=== PATIENT | male | born 1950 | race Two or more races ===

== ENCOUNTER 2023-01-07 16:08 | Inpatient (IN) | payer MEDICARE ==
[~2023-01-07] VITALS: Ht 167.6 cm; Wt 68.0 kg
[2023-01-07 17:12] LABS: BASOPHILS % (AUTO) 0.4 % (0.0-2.0); EOSINOPHILS % (AUTO) 0.4 % (0.0-6.0); HEMATOCRIT 38 % (39-51); HEMOGLOBIN 12.4 g/dL (13.5-17.5); LYMPHOCYTES # (AUTO) 0.8 K/uL (0.8-4.8); LYMPHOCYTES % (AUTO) 9.4 % (20.0-44.0); MEAN CORPUSCULAR HEMOGLOBIN 28 PG (26.0-33.0); MEAN CORPUSCULAR HGB CONC 33 g/dl (31.0-36.0); MEAN CORPUSCULAR VOLUME 86 fL (80-96); MONOCYTES # (AUTO) 0.6 K/uL (0.1-1.30); NEUTROPHILS # (AUTO) 7.2 K/uL (1.8-8.9); NEUTROPHILS % (AUTO) 82.8 % (43.0-81.0); PLATELET COUNT (AUTO) 174 K/uL (150-450); RED BLOOD CELL COUNT(AUTO) 4.43 MIL/uL (4.5-6.0); RED CELL DISTRIBUTION WIDTH 15.9 % (11.5-15.0); WHITE BLOOD COUNT (AUTO) 8.7 K/uL (4.3-11.0)
[2023-01-07 17:27] LABS: ALANINE AMINOTRANSFERASE 28 U/L (12-78); ALBUMIN 4.3 g/dL (3.4-5.0); ALKALINE PHOSPHATASE 72 U/L (46-116); ASPARTATE AMINOTRANSFERASE 24 U/L (15-37); BILIRUBIN,DIRECT 0.1 mg/dL (0.0-0.2); BILIRUBIN,TOTAL 0.2 mg/dL (0.2-1.0); CALCIUM, SERUM 9.9 mg/dL (8.5-10.1); CARBON DIOXIDE 26 mmol/L (21-32); CHLORIDE 96 mmol/L (98-107); CREATININE 1.3 mg/dL (0.6-1.3); GLUCOSE 283 mg/dL (74-106); POTASSIUM 4.8 mmol/L (3.5-5.1); SALICYLATE 3.6 mg/dL (2.8-20.0); SODIUM SERUM 134 mmol/L (136-145); TOTAL PROTEIN, SERUM 7.6 g/dL (6.4-8.2); UREA NITROGEN, BLOOD 16 mg/dL (7-18)
[2023-01-07 17:38] LABS: ACETAMINOPHEN <10 ug/ml (10-30); ALCOHOL, BLOOD < 3 mg/dL (0-10)
[2023-01-07 18:19] LABS: APPEARANCE,URINE CLEAR (CLEAR); BILIRUBIN,URINE NEGATIVE (NEGATIVE); BLOOD, URINE NEGATIVE Ery/uL (NEGATIVE); COLOR,URINE YELLOW (YELLOW); KETONES,URINE 1+ mg/dL (NEGATIVE); LEUKOCYTE ESTERASE ,URINE NEGATIVE (NEGATIVE); NITRITE, URINE NEGATIVE (NEGATIVE); PROTEIN,URINE NEGATIVE (NEGATIVE); UGLUCOSE 3+ mg/dL (NEGATIVE); UROBILINOGEN,URINE 0.2 EU/dL (0.2)
[2023-01-07 18:36] LABS: AMPHETAMINE, URINE NEGATIVE (NEGATIVE); BARBITURATE, URINE NEGATIVE (NEGATIVE); BENZODIAZEPINE, URINE NEGATIVE (NEGATIVE); CANNABINOID, URINE NEGATIVE (NEGATIVE); COCCAINE, URINE NEGATIVE (NEGATIVE); OPIATE, URINE NEGATIVE (NEGATIVE); PHENCYCLIDINE SCREEN,URINE NEGATIVE (NEGATIVE)
[2023-01-07 18:46] LABS: ADD URINE CULTURE NO; BACTERIA,URINE Rare /HPF (None Seen); RBC,URINE 0-2 /HPF (0-2); WBC,URINE 0-2 /HPF (0-3)
[2023-01-07 18:47] LABS: CALCIUM OXALATE CRYSTALS,UR Rare /HPF (None Seen); SQUAMOUS EPITHELIAL CELL,UR Rare /HPF (None Seen)
[2023-01-07] MEDS ORDERED: LIDOCAINE 1% INJ 50 ML MDV IJ ONE (18:48)
[2023-01-07] MEDS ORDERED: LIDOCAINE 2% JEL UROJET 10 ML MM ONE (19:10)
[2023-01-07] MEDS ORDERED: DEXTROSE 50%-WATER 50 ML DISP.SYRIN IV PRN (21:00)
[2023-01-07] MEDS ORDERED: LORAZEPAM 1 MG TABLET PO PRN (21:00)
[2023-01-07 22:35] VITALS: BP 117/56; TEMP 98.8; O2SAT 97
[2023-01-07] MEDS: BLOOD SUGAR DIAGNOSTIC 1 EACH STRIP IN SCH (22:37)
[2023-01-07] MEDS ORDERED: BLOOD SUGAR DIAGNOSTIC 1 EACH STRIP IN ONE (23:00)
[2023-01-07] MEDS ORDERED: MAGNESIUM HYDROXIDE 30 ML UDC PO PRN (23:00)
[2023-01-07] MEDS ORDERED: MAG HYDROX/AL HYDROX/SIMETH 30 ML UDC PO PRN (23:00)
[2023-01-07] MEDS: LORAZEPAM 0.5 MG TABLET PO PRN (23:15)
[2023-01-08] MEDS: INSULIN REGULAR, HUMAN 100 UNIT/ML 3 ML VIAL SQ PRN ×5 (00:04→21:59)
[2023-01-08 07:14] LABS: CREATININE 0.9 mg/dL (0.6-1.3)
[2023-01-08 07:22] LABS: CHOLESTEROL 112 mg/dL (<200); HDL CHOLESTEROL 33 mg/dL (40-60); LDL 59 mg/dL (0-99); TRIGLYCERIDES 131 mg/dL (30-150)
[2023-01-08 08:00] VITALS: BP 107/73; TEMP 98.6; O2SAT 97
[2023-01-08] MEDS: BLOOD SUGAR DIAGNOSTIC 1 EACH STRIP IN SCH ×4 (08:08→21:55)
[2023-01-08] MEDS ORDERED: ASCO-340 PO (09:09)
[2023-01-08] MEDS ORDERED: CARV3.122 PO (09:09)
[2023-01-08] MEDS ORDERED: LISI2.5T2 PO (09:09)
[2023-01-08] MEDS ORDERED: INSU100I30 SQ (09:09)
[2023-01-08] MEDS ORDERED: LIFI1DRO4 EACHEYE (09:09)
[2023-01-08] MEDS ORDERED: PANT40TA49 PO (09:09)
[2023-01-08] MEDS ORDERED: SEMA1PEN SQ (09:09)
[2023-01-08] MEDS ORDERED: ASPI-1169 PO (09:09)
[2023-01-08] MEDS ORDERED: PREG50CA PO (09:09)
[2023-01-08] MEDS ORDERED: DULO20CA19 PO (09:09)
[2023-01-08] MEDS ORDERED: METF-442 PO (09:09)
[2023-01-08] MEDS ORDERED: PENT400T17 PO (09:09)
[2023-01-08] MEDS ORDERED: DOCU250C14 PO (09:09)
[2023-01-08] MEDS ORDERED: ROSU5TAB PO (09:09)
[2023-01-08] MEDS ORDERED: HYDR-500 PO (09:09)
[2023-01-08] MEDS ORDERED: TAMS-12 PO (09:09)
[2023-01-08] MEDS ORDERED: LIDO30CR TP (09:09)
[2023-01-08] MEDS ORDERED: CHOL100043 PO (09:09)
[2023-01-08] MEDS ORDERED: TRAZ-257 PO (09:09)
[2023-01-08] MEDS ORDERED: ACET-2605 PO (09:09)
[2023-01-08] MEDS ORDERED: LEVO25TA2 PO (09:09)
[2023-01-08] MEDS: FLUOXETINE HCL 20 MG CAPSULE PO SCH (12:45)
[2023-01-08] MEDS ORDERED: DEXTROSE 50%-WATER 50 ML DISP.SYRIN IV PRN (14:00)
[2023-01-08 16:00] VITALS: BP 116/56; TEMP 97.7; O2SAT 96
[2023-01-08] MEDS: ASPIRIN 81 MG TAB.CHEW PO SCH (16:17)
[2023-01-08] MEDS: METFORMIN 500 MG TABLET PO SCH (16:17)
[2023-01-08] MEDS: DOCUSATE SODIUM 250 MG CAPSULE PO SCH (16:18)
[2023-01-08] MEDS: CARVEDILOL 3.125 MG TABLET PO SCH (16:18)
[2023-01-08] MEDS: ASCORBIC ACID 500 MG TABLET PO SCH (16:18)
[2023-01-08] MEDS: LEVOTHYROXINE SODIUM 25 MCG TABLET PO SCH (16:20)
[2023-01-08] MEDS: PENTOXIFYLLINE 400 MG TABLET.SA PO SCH (17:00)
[2023-01-08] MEDS ORDERED: LIDOCAINE/PRILOCAINE (5GM) 5 GM TUBE TP SCH (17:00)
[2023-01-08] MEDS: TRAZODONE 50 MG TABLET PO SCH (20:07)
[2023-01-08 20:24] VITALS: BP 123/91; TEMP 98.2; O2SAT 96
[2023-01-08] MEDS: ATORVASTATIN 10 MG TABLET PO SCH (21:46)
[2023-01-08] MEDS: TAMSULOSIN 0.4 MG CAP.SR.24H PO SCH (21:49)
[2023-01-09] MEDS: BLOOD SUGAR DIAGNOSTIC 1 EACH STRIP IN SCH ×4 (07:50→22:00)
[2023-01-09] MEDS: INSULIN REGULAR, HUMAN 100 UNIT/ML 3 ML VIAL SQ PRN ×4 (07:51→22:01)
[2023-01-09 08:00] VITALS: BP 141/66; TEMP 98.2; O2SAT 95
[2023-01-09] MEDS: ASPIRIN 81 MG TAB.CHEW PO SCH (08:30)
[2023-01-09] MEDS: DOCUSATE SODIUM 250 MG CAPSULE PO SCH ×2 (08:31→16:32)
[2023-01-09] MEDS: METFORMIN 500 MG TABLET PO SCH ×2 (08:31→16:32)
[2023-01-09] MEDS: ASCORBIC ACID 500 MG TABLET PO SCH ×2 (08:31→16:31)
[2023-01-09] MEDS: CHOLECALCIFEROL 1,000 UNIT TABLET (VIT D3) PO SCH (08:31)
[2023-01-09] MEDS: PANTOPRAZOLE 40 MG TABLET.DR PO SCH (08:31)
[2023-01-09] MEDS: CARVEDILOL 3.125 MG TABLET PO SCH ×2 (08:32→16:32)
[2023-01-09] MEDS: LEVOTHYROXINE SODIUM 25 MCG TABLET PO SCH (08:32)
[2023-01-09] MEDS: LISINOPRIL (10MG) 10 MG TABLET PO SCH (08:34)
[2023-01-09] MEDS: PENTOXIFYLLINE 400 MG TABLET.SA PO SCH ×3 (08:34→16:32)
[2023-01-09] MEDS: PREGABALIN 25 MG CAPSULE PO SCH (08:34)
[2023-01-09] MEDS: INSULIN GLARGINE, 100 UNIT/ML CARTRIDGE SQ SCH (08:39)
[2023-01-09] MEDS: FLUOXETINE HCL 20 MG CAPSULE PO SCH (13:44)
[2023-01-09 16:00] VITALS: BP 100/62; TEMP 98.4; O2SAT 97
[2023-01-09 20:00] VITALS: BP 110/69; TEMP 98.2; O2SAT 98
[2023-01-09] MEDS: ACETAMINOPHEN 325 MG TABLET PO PRN (20:21)
[2023-01-09] MEDS: TAMSULOSIN 0.4 MG CAP.SR.24H PO SCH (21:59)
[2023-01-09] MEDS: TRAZODONE 50 MG TABLET PO SCH (21:59)
[2023-01-09] MEDS: ATORVASTATIN 10 MG TABLET PO SCH (21:59)
[2023-01-09] MEDS: LORAZEPAM 0.5 MG TABLET PO PRN (23:09)
[2023-01-10] MEDS: BLOOD SUGAR DIAGNOSTIC 1 EACH STRIP IN SCH ×4 (07:55→21:56)
[2023-01-10] MEDS: LEVOTHYROXINE SODIUM 25 MCG TABLET PO SCH (07:55)
[2023-01-10 08:00] VITALS: BP 100/68; TEMP 97.8; O2SAT 97
[2023-01-10] MEDS: ASPIRIN 81 MG TAB.CHEW PO SCH (08:36)
[2023-01-10] MEDS: CHOLECALCIFEROL 1,000 UNIT TABLET (VIT D3) PO SCH (08:36)
[2023-01-10] MEDS: DOCUSATE SODIUM 250 MG CAPSULE PO SCH ×2 (08:36→16:22)
[2023-01-10] MEDS: METFORMIN 500 MG TABLET PO SCH ×2 (08:36→16:22)
[2023-01-10] MEDS: PENTOXIFYLLINE 400 MG TABLET.SA PO SCH ×3 (08:36→16:22)
[2023-01-10] MEDS: LISINOPRIL (10MG) 10 MG TABLET PO SCH (08:37)
[2023-01-10] MEDS: PREGABALIN 25 MG CAPSULE PO SCH (08:37)
[2023-01-10] MEDS: PANTOPRAZOLE 40 MG TABLET.DR PO SCH (08:37)
[2023-01-10] MEDS: ASCORBIC ACID 500 MG TABLET PO SCH ×2 (08:37→16:22)
[2023-01-10] MEDS: CARVEDILOL 3.125 MG TABLET PO SCH ×2 (08:38→16:23)
[2023-01-10] MEDS: NICOTINE PATCH (14MG) 14 MG PATCH.TD24 TD SCH (08:41)
[2023-01-10] MEDS: INSULIN GLARGINE, 100 UNIT/ML CARTRIDGE SQ SCH (08:43)
[2023-01-10] MEDS: INSULIN REGULAR, HUMAN 100 UNIT/ML 3 ML VIAL SQ PRN ×4 (08:45→22:00)
[2023-01-10] MEDS: FLUOXETINE HCL 20 MG CAPSULE PO SCH (12:10)
[2023-01-10 16:00] VITALS: BP 107/64; TEMP 98.1; O2SAT 98
[2023-01-10 20:00] VITALS: BP 129/66; TEMP 98.1; O2SAT 98
[2023-01-10] MEDS: ATORVASTATIN 10 MG TABLET PO SCH (21:54)
[2023-01-10] MEDS: TAMSULOSIN 0.4 MG CAP.SR.24H PO SCH (21:55)
[2023-01-10] MEDS: TRAZODONE 50 MG TABLET PO SCH (21:56)
[2023-01-10] MEDS ORDERED: OLANZAPINE 2.5 MG TABLET PO SCH (22:00)
[2023-01-10] MEDS: TEMAZEPAM 7.5 MG CAPSULE PO PRN (23:13)
[2023-01-11] MEDS: LORAZEPAM 0.5 MG TABLET PO PRN ×2 (00:31→22:27)
[2023-01-11 08:00] VITALS: BP 110/64; TEMP 97.6; O2SAT 100
[2023-01-11] MEDS: LEVOTHYROXINE SODIUM 25 MCG TABLET PO SCH (08:46)
[2023-01-11] MEDS: ASCORBIC ACID 500 MG TABLET PO SCH ×2 (08:46→16:26)
[2023-01-11] MEDS: METFORMIN 500 MG TABLET PO SCH ×2 (08:46→16:26)
[2023-01-11] MEDS: CHOLECALCIFEROL 1,000 UNIT TABLET (VIT D3) PO SCH (08:46)
[2023-01-11] MEDS: PANTOPRAZOLE 40 MG TABLET.DR PO SCH (08:46)
[2023-01-11] MEDS: NICOTINE PATCH (14MG) 14 MG PATCH.TD24 TD SCH (08:46)
[2023-01-11] MEDS: DOCUSATE SODIUM 250 MG CAPSULE PO SCH ×2 (08:46→16:26)
[2023-01-11] MEDS: BLOOD SUGAR DIAGNOSTIC 1 EACH STRIP IN SCH ×4 (08:46→21:25)
[2023-01-11] MEDS: PENTOXIFYLLINE 400 MG TABLET.SA PO SCH ×3 (08:46→16:26)
[2023-01-11] MEDS: ASPIRIN 81 MG TAB.CHEW PO SCH (08:47)
[2023-01-11] MEDS: PREGABALIN 25 MG CAPSULE PO SCH (08:47)
[2023-01-11] MEDS: INSULIN GLARGINE, 100 UNIT/ML CARTRIDGE SQ SCH (08:48)
[2023-01-11] MEDS: CARVEDILOL 3.125 MG TABLET PO SCH ×2 (08:50→16:26)
[2023-01-11] MEDS: LISINOPRIL (10MG) 10 MG TABLET PO SCH (08:50)
[2023-01-11] MEDS: INSULIN REGULAR, HUMAN 100 UNIT/ML 3 ML VIAL SQ PRN ×4 (08:50→21:25)
[2023-01-11] MEDS: CADEXOMER IODINE 40 GM TUBE TP SCH (14:52)
[2023-01-11 16:00] VITALS: BP 160/68; TEMP 98; O2SAT 98
[2023-01-11 20:00] VITALS: BP 119/59; TEMP 98; O2SAT 99
[2023-01-11] MEDS: TRAZODONE 50 MG TABLET PO SCH (21:12)
[2023-01-11] MEDS: ATORVASTATIN 10 MG TABLET PO SCH (21:13)
[2023-01-11] MEDS: OLANZAPINE 2.5 MG TABLET PO SCH (21:13)
[2023-01-11] MEDS: TAMSULOSIN 0.4 MG CAP.SR.24H PO SCH (21:13)
[2023-01-11] MEDS: TEMAZEPAM 7.5 MG CAPSULE PO PRN (23:37)
[2023-01-12 08:00] VITALS: BP 116/67; TEMP 97.6; O2SAT 98
[2023-01-12] MEDS: BLOOD SUGAR DIAGNOSTIC 1 EACH STRIP IN SCH ×4 (08:30→22:31)
[2023-01-12] MEDS: DOCUSATE SODIUM 250 MG CAPSULE PO SCH ×2 (08:30→16:36)
[2023-01-12] MEDS: PANTOPRAZOLE 40 MG TABLET.DR PO SCH (08:30)
[2023-01-12] MEDS: METFORMIN 500 MG TABLET PO SCH ×2 (08:30→16:36)
[2023-01-12] MEDS: PENTOXIFYLLINE 400 MG TABLET.SA PO SCH ×3 (08:30→16:36)
[2023-01-12] MEDS: ASCORBIC ACID 500 MG TABLET PO SCH ×2 (08:30→16:36)
[2023-01-12] MEDS: ASPIRIN 81 MG TAB.CHEW PO SCH (08:30)
[2023-01-12] MEDS: PREGABALIN 25 MG CAPSULE PO SCH (08:30)
[2023-01-12] MEDS: LEVOTHYROXINE SODIUM 25 MCG TABLET PO SCH (08:30)
[2023-01-12] MEDS: NICOTINE PATCH (14MG) 14 MG PATCH.TD24 TD SCH (08:30)
[2023-01-12] MEDS: CHOLECALCIFEROL 1,000 UNIT TABLET (VIT D3) PO SCH (08:30)
[2023-01-12] MEDS: CARVEDILOL 3.125 MG TABLET PO SCH ×2 (08:33→16:37)
[2023-01-12] MEDS: LISINOPRIL (10MG) 10 MG TABLET PO SCH (08:34)
[2023-01-12] MEDS: INSULIN REGULAR, HUMAN 100 UNIT/ML 3 ML VIAL SQ PRN ×4 (08:37→22:33)
[2023-01-12] MEDS: INSULIN GLARGINE, 100 UNIT/ML CARTRIDGE SQ SCH (08:38)
[2023-01-12] MEDS: CADEXOMER IODINE 40 GM TUBE TP SCH (08:41)
[2023-01-12 16:10] VITALS: BP 100/55; TEMP 98.1; O2SAT 98
[2023-01-12 20:47] VITALS: BP 95/61; TEMP 97.9; O2SAT 98
[2023-01-12] MEDS: ATORVASTATIN 10 MG TABLET PO SCH (21:23)
[2023-01-12] MEDS: TRAZODONE 50 MG TABLET PO SCH (21:24)
[2023-01-12] MEDS: TAMSULOSIN 0.4 MG CAP.SR.24H PO SCH (21:25)
[2023-01-12] MEDS: OLANZAPINE 2.5 MG TABLET PO SCH (21:25)
[2023-01-12] MEDS: TEMAZEPAM 7.5 MG CAPSULE PO PRN (22:42)
[2023-01-13] MEDS: LEVOTHYROXINE SODIUM 25 MCG TABLET PO SCH (07:30)
[2023-01-13] MEDS: BLOOD SUGAR DIAGNOSTIC 1 EACH STRIP IN SCH ×4 (07:49→21:52)
[2023-01-13 08:00] VITALS: BP 102/54; TEMP 98.7; O2SAT 96
[2023-01-13] MEDS: LIDOCAINE 5% OINT 35.44 GM TUBE TP SCH (09:00)
[2023-01-13] MEDS: CADEXOMER IODINE 40 GM TUBE TP SCH (09:00)
[2023-01-13] MEDS: METFORMIN 500 MG TABLET PO SCH (10:46)
[2023-01-13] MEDS: DOCUSATE SODIUM 250 MG CAPSULE PO SCH ×2 (10:46→18:16)
[2023-01-13] MEDS: LISINOPRIL (10MG) 10 MG TABLET PO SCH (10:46)
[2023-01-13] MEDS: PREGABALIN 25 MG CAPSULE PO SCH (10:46)
[2023-01-13] MEDS: PANTOPRAZOLE 40 MG TABLET.DR PO SCH (10:46)
[2023-01-13] MEDS: CARVEDILOL 3.125 MG TABLET PO SCH ×2 (10:47→18:16)
[2023-01-13] MEDS: PENTOXIFYLLINE 400 MG TABLET.SA PO SCH ×3 (10:47→18:15)
[2023-01-13] MEDS: CHOLECALCIFEROL 1,000 UNIT TABLET (VIT D3) PO SCH (10:47)
[2023-01-13] MEDS: NICOTINE PATCH (14MG) 14 MG PATCH.TD24 TD SCH (10:47)
[2023-01-13] MEDS: ASPIRIN 81 MG TAB.CHEW PO SCH (10:48)
[2023-01-13] MEDS: ASCORBIC ACID 500 MG TABLET PO SCH ×2 (10:48→18:16)
[2023-01-13] MEDS: INSULIN GLARGINE, 100 UNIT/ML CARTRIDGE SQ SCH (11:07)
[2023-01-13] MEDS: INSULIN REGULAR, HUMAN 100 UNIT/ML 3 ML VIAL SQ PRN ×2 (12:36→22:00)
[2023-01-13] MEDS ORDERED: IOHEXOL-300 100 ML VIAL IV ONE (14:43)
[2023-01-13 16:00] VITALS: BP 103/52; TEMP 98.7; O2SAT 100
[2023-01-13 20:15] VITALS: BP 93/44; TEMP 98.2; O2SAT 98
[2023-01-13] MEDS: TAMSULOSIN 0.4 MG CAP.SR.24H PO SCH (21:51)
[2023-01-13] MEDS: OLANZAPINE 2.5 MG TABLET PO SCH (21:52)
[2023-01-13] MEDS: TRAZODONE 50 MG TABLET PO SCH (21:52)
[2023-01-13] MEDS: ATORVASTATIN 10 MG TABLET PO SCH (21:52)
[2023-01-13] MEDS: TEMAZEPAM 7.5 MG CAPSULE PO PRN (21:53)
[2023-01-14] MEDS: LORAZEPAM 0.5 MG TABLET PO PRN ×2 (00:23→21:14)
[2023-01-14 08:00] VITALS: BP 146/75; TEMP 97.8; O2SAT 96
[2023-01-14] MEDS: BLOOD SUGAR DIAGNOSTIC 1 EACH STRIP IN SCH ×4 (08:16→21:20)
[2023-01-14] MEDS: PENTOXIFYLLINE 400 MG TABLET.SA PO SCH ×3 (09:35→16:51)
[2023-01-14] MEDS: CHOLECALCIFEROL 1,000 UNIT TABLET (VIT D3) PO SCH (09:35)
[2023-01-14] MEDS: LEVOTHYROXINE SODIUM 25 MCG TABLET PO SCH (09:35)
[2023-01-14] MEDS: PREGABALIN 25 MG CAPSULE PO SCH (09:35)
[2023-01-14] MEDS: ASCORBIC ACID 500 MG TABLET PO SCH ×2 (09:36→16:51)
[2023-01-14] MEDS: ASPIRIN 81 MG TAB.CHEW PO SCH (09:36)
[2023-01-14] MEDS: PANTOPRAZOLE 40 MG TABLET.DR PO SCH (09:36)
[2023-01-14] MEDS: DOCUSATE SODIUM 250 MG CAPSULE PO SCH ×2 (09:36→16:51)
[2023-01-14] MEDS: CARVEDILOL 3.125 MG TABLET PO SCH ×2 (09:37→16:52)
[2023-01-14] MEDS: LISINOPRIL (10MG) 10 MG TABLET PO SCH (09:38)
[2023-01-14] MEDS: CADEXOMER IODINE 40 GM TUBE TP SCH (09:54)
[2023-01-14] MEDS: LIDOCAINE 5% OINT 35.44 GM TUBE TP SCH (09:55)
[2023-01-14] MEDS: INSULIN GLARGINE, 100 UNIT/ML CARTRIDGE SQ SCH (09:56)
[2023-01-14] MEDS: NICOTINE PATCH (14MG) 14 MG PATCH.TD24 TD SCH (10:00)
[2023-01-14] MEDS: DOXYCYCLINE HYCLATE (100 MG) 100 MG TABLET PO SCH ×2 (12:21→20:59)
[2023-01-14] MEDS: INSULIN REGULAR, HUMAN 100 UNIT/ML 3 ML VIAL SQ PRN ×3 (12:36→21:46)
[2023-01-14 16:00] VITALS: BP 114/59; TEMP 97.8; O2SAT 100
[2023-01-14 20:28] VITALS: BP 104/50; TEMP 98.6; O2SAT 98
[2023-01-14] MEDS: TRAZODONE 50 MG TABLET PO SCH (21:00)
[2023-01-14] MEDS: OLANZAPINE 2.5 MG TABLET PO SCH (21:00)
[2023-01-14] MEDS: TAMSULOSIN 0.4 MG CAP.SR.24H PO SCH (21:00)
[2023-01-14] MEDS: TEMAZEPAM 7.5 MG CAPSULE PO PRN (21:28)
[2023-01-14] MEDS: ATORVASTATIN 10 MG TABLET PO SCH (22:07)
[2023-01-15 08:00] VITALS: BP 110/59; TEMP 98.7; O2SAT 100
[2023-01-15] MEDS: BLOOD SUGAR DIAGNOSTIC 1 EACH STRIP IN SCH ×4 (08:32→21:25)
[2023-01-15] MEDS: INSULIN GLARGINE, 100 UNIT/ML CARTRIDGE SQ SCH (08:42)
[2023-01-15] MEDS: INSULIN REGULAR, HUMAN 100 UNIT/ML 3 ML VIAL SQ PRN ×4 (08:43→21:25)
[2023-01-15] MEDS: PENTOXIFYLLINE 400 MG TABLET.SA PO SCH ×3 (09:00→17:41)
[2023-01-15] MEDS: ASPIRIN 81 MG TAB.CHEW PO SCH (09:02)
[2023-01-15] MEDS: DOXYCYCLINE HYCLATE (100 MG) 100 MG TABLET PO SCH ×2 (09:02→21:53)
[2023-01-15] MEDS: NICOTINE PATCH (14MG) 14 MG PATCH.TD24 TD SCH (09:02)
[2023-01-15] MEDS: LISINOPRIL (10MG) 10 MG TABLET PO SCH (09:03)
[2023-01-15] MEDS: PREGABALIN 25 MG CAPSULE PO SCH (09:04)
[2023-01-15] MEDS: LEVOTHYROXINE SODIUM 25 MCG TABLET PO SCH (09:04)
[2023-01-15] MEDS: PANTOPRAZOLE 40 MG TABLET.DR PO SCH (09:04)
[2023-01-15] MEDS: ASCORBIC ACID 500 MG TABLET PO SCH ×2 (09:04→17:42)
[2023-01-15] MEDS: DOCUSATE SODIUM 250 MG CAPSULE PO SCH ×2 (09:04→17:40)
[2023-01-15] MEDS: CHOLECALCIFEROL 1,000 UNIT TABLET (VIT D3) PO SCH (09:04)
[2023-01-15] MEDS: CARVEDILOL 3.125 MG TABLET PO SCH ×2 (09:05→17:42)
[2023-01-15] MEDS: LIDOCAINE 5% OINT 35.44 GM TUBE TP SCH (09:22)
[2023-01-15] MEDS: CADEXOMER IODINE 40 GM TUBE TP SCH (09:22)
[2023-01-15] MEDS ORDERED: INSULIN REGULAR, HUMAN 100 UNIT/ML 3 ML VIAL SQ ONE (13:00)
[2023-01-15 16:00] VITALS: BP 121/53; TEMP 98.6; O2SAT 99
[2023-01-15] MEDS: OLANZAPINE 2.5 MG TABLET PO SCH ×2 (17:41→21:55)
[2023-01-15] MEDS: ACETAMINOPHEN 325 MG TABLET PO PRN (20:19)
[2023-01-15] MEDS: TRAZODONE 50 MG TABLET PO SCH (21:53)
[2023-01-15] MEDS: ATORVASTATIN 10 MG TABLET PO SCH (21:54)
[2023-01-15] MEDS: TEMAZEPAM 7.5 MG CAPSULE PO PRN (22:10)
[2023-01-15] MEDS: TAMSULOSIN 0.4 MG CAP.SR.24H PO SCH (22:44)
[2023-01-16 08:00] VITALS: BP 107/60; TEMP 98; O2SAT 96
[2023-01-16] MEDS: BLOOD SUGAR DIAGNOSTIC 1 EACH STRIP IN SCH ×4 (08:08→22:00)
[2023-01-16] MEDS: INSULIN REGULAR, HUMAN 100 UNIT/ML 3 ML VIAL SQ PRN ×3 (08:10→16:47)
[2023-01-16] MEDS: LEVOTHYROXINE SODIUM 25 MCG TABLET PO SCH (08:11)
[2023-01-16] MEDS: LISINOPRIL (10MG) 10 MG TABLET PO SCH (09:00)
[2023-01-16] MEDS: LIDOCAINE 5% OINT 35.44 GM TUBE TP SCH (09:00)
[2023-01-16] MEDS: CARVEDILOL 3.125 MG TABLET PO SCH ×2 (09:00→16:36)
[2023-01-16] MEDS: CADEXOMER IODINE 40 GM TUBE TP SCH (10:18)
[2023-01-16] MEDS: NICOTINE PATCH (14MG) 14 MG PATCH.TD24 TD SCH (10:18)
[2023-01-16] MEDS: DOXYCYCLINE HYCLATE (100 MG) 100 MG TABLET PO SCH ×2 (10:19→21:36)
[2023-01-16] MEDS: CHOLECALCIFEROL 1,000 UNIT TABLET (VIT D3) PO SCH (10:20)
[2023-01-16] MEDS: METFORMIN 500 MG TABLET PO SCH ×2 (10:20→16:36)
[2023-01-16] MEDS: OLANZAPINE 2.5 MG TABLET PO SCH ×3 (10:20→22:34)
[2023-01-16] MEDS: PANTOPRAZOLE 40 MG TABLET.DR PO SCH (10:21)
[2023-01-16] MEDS: PREGABALIN 25 MG CAPSULE PO SCH (10:21)
[2023-01-16] MEDS: PENTOXIFYLLINE 400 MG TABLET.SA PO SCH ×3 (10:21→16:36)
[2023-01-16] MEDS: ASPIRIN 81 MG TAB.CHEW PO SCH (10:21)
[2023-01-16] MEDS: DOCUSATE SODIUM 250 MG CAPSULE PO SCH ×2 (10:21→16:35)
[2023-01-16] MEDS: ASCORBIC ACID 500 MG TABLET PO SCH ×2 (10:21→16:36)
[2023-01-16] MEDS: INSULIN GLARGINE, 100 UNIT/ML CARTRIDGE SQ SCH (10:23)
[2023-01-16 16:00] VITALS: BP 120/58; TEMP 98; O2SAT 100
[2023-01-16] MEDS: TRAZODONE 50 MG TABLET PO SCH (21:36)
[2023-01-16] MEDS: ATORVASTATIN 10 MG TABLET PO SCH (22:33)
[2023-01-16] MEDS: TAMSULOSIN 0.4 MG CAP.SR.24H PO SCH (22:33)
[2023-01-17] MEDS: BLOOD SUGAR DIAGNOSTIC 1 EACH STRIP IN SCH ×4 (07:30→21:30)
[2023-01-17 08:00] VITALS: BP 119/79; TEMP 97.8; O2SAT 100
[2023-01-17] MEDS: PANTOPRAZOLE 40 MG TABLET.DR PO SCH (08:44)
[2023-01-17] MEDS: ASCORBIC ACID 500 MG TABLET PO SCH ×2 (08:44→16:48)
[2023-01-17] MEDS: OLANZAPINE 2.5 MG TABLET PO SCH ×3 (08:44→21:29)
[2023-01-17] MEDS: PREGABALIN 25 MG CAPSULE PO SCH (08:44)
[2023-01-17] MEDS: METFORMIN 500 MG TABLET PO SCH ×2 (08:44→16:47)
[2023-01-17] MEDS: LEVOTHYROXINE SODIUM 25 MCG TABLET PO SCH (08:45)
[2023-01-17] MEDS: ASPIRIN 81 MG TAB.CHEW PO SCH (08:45)
[2023-01-17] MEDS: DOXYCYCLINE HYCLATE (100 MG) 100 MG TABLET PO SCH ×2 (08:45→21:29)
[2023-01-17] MEDS: PENTOXIFYLLINE 400 MG TABLET.SA PO SCH ×3 (08:45→16:48)
[2023-01-17] MEDS: CARVEDILOL 3.125 MG TABLET PO SCH ×2 (08:46→16:46)
[2023-01-17] MEDS: LISINOPRIL (10MG) 10 MG TABLET PO SCH (08:46)
[2023-01-17] MEDS: CHOLECALCIFEROL 1,000 UNIT TABLET (VIT D3) PO SCH (08:47)
[2023-01-17] MEDS: NICOTINE PATCH (14MG) 14 MG PATCH.TD24 TD SCH (08:49)
[2023-01-17] MEDS: INSULIN GLARGINE, 100 UNIT/ML CARTRIDGE SQ SCH (09:13)
[2023-01-17] MEDS: INSULIN REGULAR, HUMAN 100 UNIT/ML 3 ML VIAL SQ PRN ×4 (09:15→21:34)
[2023-01-17] MEDS: DOCUSATE SODIUM 250 MG CAPSULE PO SCH ×2 (12:23→16:46)
[2023-01-17] MEDS: CADEXOMER IODINE 40 GM TUBE TP SCH (12:43)
[2023-01-17] MEDS: LIDOCAINE 5% OINT 35.44 GM TUBE TP SCH (12:49)
[2023-01-17 16:00] VITALS: BP 133/64; TEMP 97.9; O2SAT 97
[2023-01-17 20:40] VITALS: BP 106/58; TEMP 97.9; O2SAT 96
[2023-01-17] MEDS: TRAZODONE 50 MG TABLET PO SCH (21:28)
[2023-01-17] MEDS: ATORVASTATIN 10 MG TABLET PO SCH (21:29)
[2023-01-17] MEDS: TAMSULOSIN 0.4 MG CAP.SR.24H PO SCH (21:30)
[2023-01-18 08:00] VITALS: BP 135/60; TEMP 97.9; O2SAT 98
[2023-01-18] MEDS: PREGABALIN 25 MG CAPSULE PO SCH (08:18)
[2023-01-18] MEDS: NICOTINE PATCH (14MG) 14 MG PATCH.TD24 TD SCH (08:18)
[2023-01-18] MEDS: PANTOPRAZOLE 40 MG TABLET.DR PO SCH (08:18)
[2023-01-18] MEDS: DOXYCYCLINE HYCLATE (100 MG) 100 MG TABLET PO SCH ×2 (08:18→21:50)
[2023-01-18] MEDS: OLANZAPINE 2.5 MG TABLET PO SCH ×3 (08:18→22:14)
[2023-01-18] MEDS: CHOLECALCIFEROL 1,000 UNIT TABLET (VIT D3) PO SCH (08:18)
[2023-01-18] MEDS: LEVOTHYROXINE SODIUM 25 MCG TABLET PO SCH (08:18)
[2023-01-18] MEDS: ASPIRIN 81 MG TAB.CHEW PO SCH (08:18)
[2023-01-18] MEDS: ASCORBIC ACID 500 MG TABLET PO SCH ×2 (08:18→16:31)
[2023-01-18] MEDS: PENTOXIFYLLINE 400 MG TABLET.SA PO SCH ×3 (08:18→16:32)
[2023-01-18] MEDS: METFORMIN 500 MG TABLET PO SCH ×2 (08:18→16:32)
[2023-01-18] MEDS: DOCUSATE SODIUM 250 MG CAPSULE PO SCH ×2 (08:18→16:31)
[2023-01-18] MEDS: BLOOD SUGAR DIAGNOSTIC 1 EACH STRIP IN SCH ×4 (08:19→22:26)
[2023-01-18] MEDS: CARVEDILOL 3.125 MG TABLET PO SCH ×2 (08:19→16:32)
[2023-01-18] MEDS: LISINOPRIL (10MG) 10 MG TABLET PO SCH (08:19)
[2023-01-18] MEDS: INSULIN GLARGINE, 100 UNIT/ML CARTRIDGE SQ SCH (08:21)
[2023-01-18] MEDS: LIDOCAINE 5% OINT 35.44 GM TUBE TP SCH (09:21)
[2023-01-18] MEDS: CADEXOMER IODINE 40 GM TUBE TP SCH (09:21)
[2023-01-18] MEDS: INSULIN REGULAR, HUMAN 100 UNIT/ML 3 ML VIAL SQ PRN ×3 (12:28→22:27)
[2023-01-18 16:00] VITALS: BP 110/56; TEMP 98.9; O2SAT 100
[2023-01-18 20:20] VITALS: BP 97/51; TEMP 98.9; O2SAT 99
[2023-01-18] MEDS: TRAZODONE 50 MG TABLET PO SCH (21:50)
[2023-01-18] MEDS: ATORVASTATIN 10 MG TABLET PO SCH (22:14)
[2023-01-18] MEDS: TAMSULOSIN 0.4 MG CAP.SR.24H PO SCH (22:14)
[2023-01-19] MEDS: TEMAZEPAM 7.5 MG CAPSULE PO PRN ×2 (03:03→21:35)
[2023-01-19 08:00] VITALS: BP 100/59; TEMP 97.8; O2SAT 99
[2023-01-19] MEDS: BLOOD SUGAR DIAGNOSTIC 1 EACH STRIP IN SCH ×4 (08:02→21:39)
[2023-01-19] MEDS: ASPIRIN 81 MG TAB.CHEW PO SCH (08:03)
[2023-01-19] MEDS: DOXYCYCLINE HYCLATE (100 MG) 100 MG TABLET PO SCH ×2 (08:03→20:41)
[2023-01-19] MEDS: LISINOPRIL (10MG) 10 MG TABLET PO SCH (08:04)
[2023-01-19] MEDS: METFORMIN 500 MG TABLET PO SCH ×2 (08:04→16:53)
[2023-01-19] MEDS: OLANZAPINE 2.5 MG TABLET PO SCH ×3 (08:04→21:14)
[2023-01-19] MEDS: CHOLECALCIFEROL 1,000 UNIT TABLET (VIT D3) PO SCH (08:05)
[2023-01-19] MEDS: NICOTINE PATCH (14MG) 14 MG PATCH.TD24 TD SCH (08:05)
[2023-01-19] MEDS: PENTOXIFYLLINE 400 MG TABLET.SA PO SCH ×3 (08:05→16:53)
[2023-01-19] MEDS: CARVEDILOL 3.125 MG TABLET PO SCH ×2 (08:05→16:53)
[2023-01-19] MEDS: PANTOPRAZOLE 40 MG TABLET.DR PO SCH (08:06)
[2023-01-19] MEDS: ASCORBIC ACID 500 MG TABLET PO SCH ×2 (08:06→16:53)
[2023-01-19] MEDS: PREGABALIN 25 MG CAPSULE PO SCH (08:06)
[2023-01-19] MEDS: DOCUSATE SODIUM 250 MG CAPSULE PO SCH ×2 (08:06→16:53)
[2023-01-19] MEDS: LEVOTHYROXINE SODIUM 25 MCG TABLET PO SCH (08:06)
[2023-01-19] MEDS: INSULIN REGULAR, HUMAN 100 UNIT/ML 3 ML VIAL SQ PRN ×4 (08:43→21:34)
[2023-01-19] MEDS: INSULIN GLARGINE, 100 UNIT/ML CARTRIDGE SQ SCH (08:45)
[2023-01-19] MEDS: CADEXOMER IODINE 40 GM TUBE TP SCH (08:45)
[2023-01-19] MEDS: LIDOCAINE 5% OINT 35.44 GM TUBE TP SCH (08:47)
[2023-01-19 16:00] VITALS: BP 103/59; TEMP 97.7; O2SAT 99
[2023-01-19 20:38] VITALS: BP 117/59; TEMP 98.2; O2SAT 98
[2023-01-19] MEDS: TRAZODONE 50 MG TABLET PO SCH (20:41)
[2023-01-19] MEDS: ATORVASTATIN 10 MG TABLET PO SCH (21:14)
[2023-01-19] MEDS: TAMSULOSIN 0.4 MG CAP.SR.24H PO SCH (21:14)
[2023-01-19] MEDS: LORAZEPAM 0.5 MG TABLET PO PRN (21:38)
[2023-01-20 08:00] VITALS: BP 138/67; TEMP 97.9; O2SAT 96
[2023-01-20] MEDS: BLOOD SUGAR DIAGNOSTIC 1 EACH STRIP IN SCH ×2 (08:20→12:26)
[2023-01-20] MEDS: LEVOTHYROXINE SODIUM 25 MCG TABLET PO SCH (08:21)
[2023-01-20] MEDS: ASCORBIC ACID 500 MG TABLET PO SCH (08:48)
[2023-01-20] MEDS: DOXYCYCLINE HYCLATE (100 MG) 100 MG TABLET PO SCH (08:48)
[2023-01-20] MEDS: CHOLECALCIFEROL 1,000 UNIT TABLET (VIT D3) PO SCH (08:48)
[2023-01-20] MEDS: PANTOPRAZOLE 40 MG TABLET.DR PO SCH (08:48)
[2023-01-20] MEDS: ASPIRIN 81 MG TAB.CHEW PO SCH (08:48)
[2023-01-20] MEDS: PREGABALIN 25 MG CAPSULE PO SCH (08:48)
[2023-01-20] MEDS: CARVEDILOL 3.125 MG TABLET PO SCH (08:49)
[2023-01-20] MEDS: METFORMIN 500 MG TABLET PO SCH (08:50)
[2023-01-20] MEDS: NICOTINE PATCH (14MG) 14 MG PATCH.TD24 TD SCH (08:50)
[2023-01-20] MEDS: OLANZAPINE 2.5 MG TABLET PO SCH (08:50)
[2023-01-20 08:51] VITALS: BP 138/67
[2023-01-20] MEDS: LISINOPRIL (10MG) 10 MG TABLET PO SCH (08:51)
[2023-01-20] MEDS: PENTOXIFYLLINE 400 MG TABLET.SA PO SCH ×2 (08:51→13:52)
[2023-01-20] MEDS: DOCUSATE SODIUM 250 MG CAPSULE PO SCH (08:51)
[2023-01-20] MEDS: CADEXOMER IODINE 40 GM TUBE TP SCH (09:01)
[2023-01-20] MEDS: LIDOCAINE 5% OINT 35.44 GM TUBE TP SCH (09:02)
[2023-01-20] MEDS: INSULIN GLARGINE, 100 UNIT/ML CARTRIDGE SQ SCH (09:03)
[2023-01-20] MEDS: INSULIN REGULAR, HUMAN 100 UNIT/ML 3 ML VIAL SQ PRN (13:54)
== END 2023-01-20 16:00 | DRG 885 ==
LOC: ER 16:14 → GPS 21:38
PROVIDERS: ADMIT Psychiatry & Neurology Psychosomatic Medicine; ATTEND Nurse Practitioner Acute Care
DX: F31.4 Bipolar disorder, current episode depressed, severe, without psychotic features (principal); U07.1 COVID-19; E11.65 Type 2 diabetes mellitus with hyperglycemia; R45.851 Suicidal ideations; E87.1 Hypo-osmolality and hyponatremia; F25.9 Schizoaffective disorder, unspecified; F43.12 Post-traumatic stress disorder, chronic; Y36 Operations of war; F19.11 Other psychoactive substance abuse, in remission; F17.210 Nicotine dependence, cigarettes, uncomplicated; Z79.4 Long term (current) use of insulin; Z79.84 Long term (current) use of oral hypoglycemic drugs; Z95.0 Presence of cardiac pacemaker; I25.10 Atherosclerotic heart disease of native coronary artery without angina pectoris; E11.42 Type 2 diabetes mellitus with diabetic polyneuropathy; L84 Corns and callosities; L73.2 Hidradenitis suppurativa; M20.42 Other hammer toe(s) (acquired), left foot; M20.41 Other hammer toe(s) (acquired), right foot; I10 Essential (primary) hypertension; K70.30 Alcoholic cirrhosis of liver without ascites; F10.11 Alcohol abuse, in remission; E11.51 Type 2 diabetes mellitus with diabetic peripheral angiopathy without gangrene; G89.29 Other chronic pain; M54.50 Low back pain, unspecified
CPT/HCPCS: 36415; 80048-TC; 80061-TC; 80076-TC; 81001; 82565-TC; 82962-TC; 85025-TC; 87081-TC; A4223; C9803; G0480; J1815; J3490; Q9967